=== PATIENT | male | born 1990 | race Asian ===

== ENCOUNTER 2017-10-15 14:00 | Emergency (ER) | payer OTHER ==
[~2017-10-15] VITALS: Ht 175.3 cm; Wt 72.6 kg
[2017-10-15 14:05] VITALS: BP 131/85
[2017-10-15 14:50] VITALS: BP 131/85
[2017-10-16 08:34] LABS: HEPATITIS B SURFACE ANTIGEN Negative (Negative)
== END 2017-10-15 14:51 | disposition home or self-care (01) ==
LOC: MED 14:00
DX: S61.231A Puncture wound without foreign body of left index finger without damage to nail, initial encounter (principal); W46.0XXA Contact with hypodermic needle, initial encounter; Y93.89 Activity, other specified; Y99.8 Other external cause status; Y92.89 Other specified places as the place of occurrence of the external cause
CPT/HCPCS: 36415; 86592; 86702; 86803; 87340; 99284